=== PATIENT | male | born 1990 | race Asian ===

== ENCOUNTER 2019-03-09 21:25 | Emergency (ER) | payer OTHER ==
[~2019-03-09] VITALS: Ht 172.7 cm; Wt 69.4 kg
[2019-03-09 21:28] VITALS: Ht 172.7 cm; Wt 69.4 kg
[2019-03-09] MEDS ORDERED: ONDANSETRON 4 MG INJ IV STA (23:11)
[2019-03-09] MEDS ORDERED: morphine 4 MG/ML VIAL IV STA (23:11)
--- NOTE | 2019-03-09 23:11 | ERD ---
ER Documentation Chief Complaint Chief Complaint PT VOMITED 2X AT WORK AFTER EATING A BUFF [employer]X JAMES MONROE This is a 28-year-old male who presents during range of motion with complaints of vomiting, abdominal pain at work after eating a buffet, cheeks to [place]. Patient also complains of right sided lower, sharp abdominal pain that only started today. Stated that he never had this kind of pain before. Also complains of mild difficulty walking due to pain. His last bowel movement was today and it was normal. Denies headache, head injury, loss of consciousness, dizziness, neck pain, neck stiffness, throat pain, difficulty swallowing, difficulty breathing lying flat, shoulder pain, chest pain, back pain, constipation, diarrhea, urinary symptoms, loss of bowel and bladder control, trauma, injury, falls, difficulty walking due to pain, numbness or tingling sensation, calf pain, recent travel, recent major surgery in the last 3 weeks, calf pain, recent long travel, recent exposure to any illness, recent antibiotic use in the last 3 months, fever, chills, seizures. Past medical history: Surgical history: Social: Denies smoking, use of alcoholic beverages, use of illegal drugs. ROS All systems reviewed and are negative except as per history of present illness. Medications Home Meds Active Scripts Ondansetron Hcl* (Zofran*) 4 Mg Tablet, 4 MG PO Q8H PRN for NAUSEA AND/OR VOMITING, #30 TAB Prov:NIRAJJUAN CARLOSFRITZBELKYS Tammi 03/10/19 Ibuprofen* (Motrin*) 600 Mg Tab, 600 MG PO Q6H PRN for PAIN AND OR ELEVATED TEMP, #30 TAB Prov:DANNIELLE GUNDERSON 03/10/19 Allergies Allergies: Coded Allergies: No Known Allergy (Unverified , 03/09/19) Physical Exam Vitals Physical Exam Const: No acute distress Head: Atraumatic Eyes: Normal Conjunctiva ENT: Normal External Ears, Nose and Mouth. Neck: Full range of motion. No meningismus. Resp: Clear to auscultation bilaterally Cardio: Regular rate and rhythm, no murmurs Abd: Soft, non tender, non distended. Normal bowel sounds. Negative Tobias sign. Lower abdominal tenderness. Positive psoas sign. Positive Rovsing sign. Positive Jose sign. No CVA tenderness. : No testicular disc oloration/tenderness. Bilateral inguinal areas no swelling/tenderness/bulging. Skin: No petechiae or rashes. Color appears normal for ethnicity. Back: No midline or flank tenderness Ext: No cyanosis, or edema Neur: Awake and alert. No neurological deficit. Psych: Normal Mood and Affect Result Diagram: 03/09/19 1502 Results 24 hrs Laboratory Tests Test 03/09/19 23:27 White Blood Count 9.1 10^3/ul Red Blood Count 4.88 10^6/ul Hemoglobin 15.0 g/dl Hematocrit 45.7 % Mean Corpuscular Volume 93.6 fl Mean Corpuscular Hemoglobin 30.7 pg Mean Corpuscular Hemoglobin Concent 32.8 g/dl Red Cell Distribution Width 12.1 % Platelet Count 278 10^3/UL Mean Platelet Volume 10.3 fl Immature Granulocytes % 0.200 % Neutrophils % 49.5 % Lymphocytes % 38.9 % Monocytes % 6.0 % Eosinophils % 4.7 % Basophils % 0.7 % Nucleated Red Blood Cells % 0.0 /100WBC Immature Granulocytes # 0.020 10^3/ul Neutrophils # 4.5 10^3/ul Lymphocytes # 3.6 10^3/ul Monocytes # 0.6 10^3/ul Eosinophils # 0.4 10^3/ul Basophils # 0.1 10^3/ul Nucleated Red Blood Cells # 0.0 10^3/ul Urine Color YELLOW Urine Clarity CLEAR Urine pH 6.0 Urine Specific [place] 1.028 Urine Ketones TRACE mg/dL Urine Nitrite NEGATIVE mg/dL Urine Bilirubin NEGATIVE mg/dL Urine Urobilinogen NEGATIVE mg/dL Urine Leukocyte Esterase NEGATIVE Samira/ul Urine Hemoglobin NEGATIVE mg/dL Urine Glucose NEGATIVE mg/dL Urine Total Protein NEGATIVE mg/dl Sodium Level 144 mmol/L Potassium Level 3.8 mmol/L Chloride Level 103 mmol/L Carbon Dioxide Level 27 mmol/L Anion Gap 14 Blood Urea Nitrogen 19 mg/dl Creatinine 1.31 mg/dl Est Glomerular Filtrat Rate mL/min > 60 mL/min Glucose Level 99 mg/dl Calcium Level 9.6 mg/dl Total Bilirubin 0.5 mg/dl Direct Bilirubin 0.00 mg/dl Indirect Bilirubin 0.5 mg/dl Aspartate Amino Transf (AST/SGOT) 22 IU/L Alanine Aminotransferase (ALT/SGPT) 22 IU/L Alkaline Phosphatase 78 IU/L Total Protein 8.2 g/dl Albumin 4.6 g/dl Globulin 3.60 g/dl Albumin/Globulin Ratio 1.27 Amylase Level 107 U/L Lipase 60 U/L Current Medications Medications Dose Sig/Domingo Start Time Status Last (Trade) Ordered Route PRN Stop Time Admin Dose Reason Admin Sodium 1,000 ml @ Q1H ONCE 03/09/19 DC 03/10/19 Chloride 1,000 mls/hr IV 23:30 02:33 03/10/19 00:29 Ondansetron 4 mg ONCE STAT 03/09/19 DC HCl (Zofran IV 23:11 Inj) 03/09/19 23:15 Morphine 4 mg ONCE STAT 03/09/19 DC Sulfate IV 23:11 (morphine) 03/09/19 23:15 IV Flush 10 ml STK-MED 03/10/19 DC 03/10/19 (NS 10 ml) ONCE .ROUTE 00:37 00:46 03/10/19 00:38 Sodium 100 ml @ ud STK-MED 03/10/19 DC 03/10/19 Chloride ONCE .ROUTE 00:37 00:46 03/10/19 00:38 Iohexol 150 ml STK-MED 03/10/19 DC 03/10/19 (Omnipaque ONCE .ROUTE 00:37 00:46 300mg/ ml) 03/10/19 00:38 Procedures/MDM Diagnostic tests: Urinalysis: Reviewed. Blood works: Reviewed. CT of the abdomen and pelvis: No evidence of appendicitis or intestinal obstruction, abscess or free air. Mild urinary bladder wall thickening most likely reflecting underdistension. This could be correlated with urinalysis results to exclude the possibility of mild cystitis. Incidental finding of small midline prostate cyst, as above. Treatment: Morphine IV. Zofran IV. Normal saline IV bolus. Re-evaluation: Negative Tobias sign. Negative [place] sign (heel jar test). Negative psoas sign. Negative Rovsing sign. No CVA tenderness. Able to jump 10 times without developing lower abdominal pain. Ambulatory with steady gait and without pain to abdomen. Stated that he feels much better at this time and that he is ready to go home. Differential diagnosis I have low suspicion for cholecystitis, pancreatitis, diverticulitis, bowel obstruction, appendicitis, inguinal hernia, inguinal hernia with incarceration, strangulation, testicular torsion, pyelonephritis, nephrolithiasis, obstructing kidney stones, septic stones. Final diagnosis: Abdominal pain. Prescription: Motrin. Zofran. Follow-up with PCP in the next 24-48 hours. Come back here in the emergency department for any new symptoms or any worsening symptoms. All questions and concerns were answered. Patient and family members verbalized understanding and agreed with plan of care. Hemodynamically stable on discharge. Departure Diagnosis: Primary Impression: Abdominal pain Additional Impression: Vomiting Condition: Stable Additional Instructions: Follow-up with PCP in the next 24-48 hours. Come back here in the emergency department for any new symptoms or any worsening symptoms. DANNIELLE GUNDERSON Mar 09, 2019 23:11
[2019-03-09] MEDS ORDERED: SOD CHLORIDE 0.9% 1,000 ML IV ONE (23:30)
[2019-03-10] MEDS ORDERED: IOHEXOL 300MG/ML 150 ML BTL ONE (00:37)
[2019-03-10] MEDS ORDERED: SOD CHLORIDE 0.9% 100 ML ONE (00:37)
[2019-03-10] MEDS ORDERED: IBUP-1542 PO (02:55)
[2019-03-10] MEDS ORDERED: ONDA4TAB8 PO (02:55)
[2019-03-10 04:14] VITALS: BP 111/70; PULSE 69; RESP 17
== END 2019-03-10 04:14 | disposition home or self-care (01) ==
LOC: FTE 21:25
DX: R10.31 Right lower quadrant pain (principal); R11.10 Vomiting, unspecified
CPT/HCPCS: 74177; 80053; 81003; 82150; 83690; 85025; 99285; J7030; Q9967